=== PATIENT | male | born 1995 | race Caucasian/White ===

== ENCOUNTER 2017-11-30 18:16 | Emergency (ER) | payer OTHER ==
[~2017-11-30] VITALS: Ht 180.3 cm; Wt 127.0 kg
[~2017-11-30 18:16] MED LIST: TAMIFLU75 MG PO
--- NOTE | 2017-11-30 20:25 | ED GENERAL ADULT ---
History of Present Illness General Chief Complaint: General Adult Stated Complaint: FEVER OF 104.5, DEHYDRATED, SORE THROAT Source: patient Exam Limitations: no limitations Vital Signs & Intake/Output Vital Signs & Intake/Output Vital Signs Date Time Temp Pulse Resp B/P B/P Pulse O2 O2 Flow FiO2 Mean Ox Delivery Rate 11/30 2202 100.5 97 16 101/52 95 Room Air 11/30 1849 102.7 11/30 1828 102.7 116 15 114/70 95 Room Air Room Air Allergies Coded Allergies: No Known Allergies (11/30/17) Reconcile Medications Amoxicillin/Potassium Clav (Augmentin 875-125 Tablet) 875 MG-125 MG TABLET 1 TAB PO BID sinusitis Ibuprofen 800 MG TABLET 1 TAB PO TID PRN pain/fever Oseltamivir Phosphate (Tamiflu) 75 MG CAP 1 TAB PO BID INFLUENZA Triage Note: PT TO ED FOR C/C OF FEVERS THAT STARTED LAST NIGHT. SUBECTIVE FEVERS HIGH 104 THIS MORNING. 102 IN TRIAGE. MEDICATED WITH TYLENOL. PT ALSO REPORTS +HEAD CONGESTION AND SORE THROAT AND SICK CONTACTS. Triage Nurses Notes Reviewed? yes Onset: Gradual Duration: day(s): Timing: recent history Injury Environment: home Severity: moderate Modifying Factors: Improves With: rest. Associated Symptoms: headache HPI: 22 yo gentleman in prior good health presents with fever to 104, myalgia, headache, sore throat, sinus pressure, without nausea, vomiting, diarrhea, dyspnea, cough, chills. He notes his children had similar symptoms last week. Past History Travel History Traveled to [place] past 21 day No Medical History Any Pertinent Medical History? see below for history Neurological: NONE EENT: NONE Cardiovascular: NONE Respiratory: NONE Gastrointestinal: NONE Hepatic: NONE Renal: NONE Musculoskeletal: NONE Psychiatric: NONE Endocrine: NONE Blood Disorders: NONE Cancer(s): NONE Surgical History Surgical History: non-contributory Psychosocial History What is your primary language Czech Tobacco Use: Current Daily Use Daily Tobacco Use Amount/Type: => 5 Cigarettes daily ETOH Use: denies use Illicit Drug Use: denies illicit drug use Family History Hx Contributory? No Review of Systems Review of Systems Constitutional: Reports: no symptoms. EENTM: Reports: no symptoms. Respiratory: Reports: no symptoms. Cardiovascular: Reports: no symptoms. GI: Reports: no symptoms. Genitourinary: Reports: no symptoms. Musculoskeletal: Reports: no symptoms. Skin: Reports: no symptoms. Neurological/Psychological: Reports: no symptoms. Hematologic/Endocrine: Reports: no symptoms. Immunologic/Allergic: Reports: no symptoms. All Other Systems: Reviewed and Negative Physical Exam Physical Exam General Appearance: well developed/nourished, comfortable Head: atraumatic, normal appearance Eyes: Bilateral: normal appearance. Ears, Nose, Throat: mild oropharyngeal erythema, no exudates. Neck: normal inspection, supple, full range of motion Respiratory: normal breath sounds, chest non-tender, no respiratory distress, quiet respiration, lungs clear Cardiovascular: regular rate/rhythm Gastrointestinal: normal bowel sounds, soft, non-tender, no organomegaly Back: normal inspection, normal range of motion Extremities: normal inspection, normal capillary refill, normal range of motion, no edema Neurologic/Psych: no motor/sensory deficits, awake, alert, oriented x 3 Skin: intact, normal color, warm/dry Core Measures ACS in differential dx? No CVA/TIA Diagnosis: No Sepsis Present: No Sepsis Focused Exam Completed? No Progress Differential Diagnoses I considered the following diagnoses in my evaluation of the patient: viral syndrome vs pneumonia vs other. Plan of Care: Orders Procedure Date/time Status Add-on Test (ER Only) 11/30 2048 Active MONOSPOT TEST 11/30 1954 Complete RAPID VIRAL INFLUENZA A 11/30 1832 Complete THROAT CULTURE W/QUICK STREP 11/30 1832 Active COMPREHENSIVE METABOLIC PANEL 11/30 1832 Complete CBC WITHOUT DIFFERENTIAL 11/30 1832 Complete Laboratory Tests 11/30/171954: Anion Gap 14, Estimated GFR > 60, BUN/Creatinine Ratio 10.0, Glucose 90, Calcium 9.2, Total Bilirubin 1.4 H, AST 42, ALT 137 H, Alkaline Phosphatase 69, Total Protein 7.4, Albumin 4.5, Globulin 2.9, Albumin/Globulin Ratio 1.6, CBC w Diff NO MAN DIFF REQ, RBC 5.34, MCV 81.7, MCH 27.8, MCHC 34.0, RDW 12.9, MPV 7.8, Gran % 85.9 H, Lymphocytes % 7.2 L, Monocytes % 6.8, Eosinophils % 0.1, Basophils % 0, Absolute Granulocytes 10.1 H, Absolute Lymphocytes 0.8 L, Absolute Monocytes 0.8 H, Absolute Eosinophils 0, Absolute Basophils 0, Infectious [place] Titer NEGATIVE Microbiology 11/30 1833 NASOPHARYN: Influenza Virus A & B Rapid Smear - COMP Diagnostic Imaging: Viewed by Me: Radiology Read. Discussed w/RAD: Radiology Read. CXR Impression: PATIENT: YANIQUE GONSALEZ PRESENT AGE: 22 PATIENT ACCOUNT NO: [id number] : 95 LOCATION: [facility] ORDERING PHYSICIAN: Chris Barragan MD SERVICE DATE: 11/30/17 EXAM TYPE: RAD - XRY-CHEST XRAY, TWO VIEWS EXAMINATION: XR CHEST CLINICAL INFORMATION: Fever COMPARISON: None TECHNIQUE: 2 views of the chest were obtained. FINDINGS: The lungs are well expanded. There is no focal consolidation, edema, or effusion. No pneumothorax. The cardiomediastinal silhouette is within normal limits. No acute osseous abnormality. IMPRESSION: No acute pulmonary findings. DICTATED BY: Arron Marcos MD DATE/TIME DICTATED:11/30/172132 [employer] [facility]:[facility]OHNNIE DATE/TIME TRANSCRIBED:11/30/172132 CONFIDENTIAL, DO NOT COPY WITHOUT APPROPRIATE AUTHORIZATION. <Electronically signed in Other Vendor System> SIGNED BY: Arron Marcos MD 11/30/172137 Initial ED EKG: none Departure Departure Disposition: HOME OR SELF CARE Condition: Stable Clinical Impression Primary Impression: Fever Secondary Impressions: Sinusitis Referrals: Patient Has No Primary Care Dr (PCP/Family) Departure Forms: Customer Survey General Discharge Information Prescriptions: Current Visit Scripts Amoxicillin/Potassium Clav (Augmentin 875-125 Tablet) 1 TAB PO BID #14 TAB Ibuprofen 1 TAB PO TID PRN pain/fever #30 TAB Comments 11/30/17, 21:58... well appearing in the ED, feels better after antipyretics and iv fluids. likely viral vs bacterial sinusisit... rx for augmentin, ibuprofen. close follow up advised. Critical Care Note Critical Care Note Critical Care Time: non-applicable
[2017-11-30 20:44] LABS: ABSOLUTE BASOPHIL COUNT 0 /CUMM (0.0-0.2); ABSOLUTE EOSINOPHIL COUNT 0 /CUMM (0.0-0.7); ABSOLUTE GRANULOCYTE CT 10.1 /CUMM (1.4-6.5); ABSOLUTE LYMPH COUNT 0.8 /CUMM (1.2-3.4); ABSOLUTE MONOCYTE COUNT 0.8 /CUMM (0.10-0.60); BASOPHIL % 0 % (0.0-2.0); EOSINOPHIL % 0.1 % (0-5); GRANULOCYTE % 85.9 % (42.2-75.2); HEMATOCRIT 43.6 % (42-52); MEAN CORPUSCULAR HGB 27.8 PG (27.0-31.0); MEAN CORPUSCULAR VOLUME 81.7 FL (80.0-94.0); MEAN PLATELET VOLUME 7.8 FL (7.4-10.4); PLATELET COUNT 252 /CUMM (130-400); RBC DISTRIBUTION WIDTH 12.9 % (11.5-14.5); RED BLOOD CELL CT 5.34 /CUMM (4.70-6.10); WHITE BLOOD CELL COUNT 11.8 /CUMM (4.8-10.8)
--- NOTE | 2017-11-30 21:38 | RADIOLOGY REPORT ---
EXAMINATION: XR CHEST CLINICAL INFORMATION: Fever COMPARISON: None TECHNIQUE: 2 views of the chest were obtained. FINDINGS: The lungs are well expanded. There is no focal consolidation, edema, or effusion. No pneumothorax. The cardiomediastinal silhouette is within normal limits. No acute osseous abnormality. IMPRESSION: No acute pulmonary findings.
[2017-11-30] MEDS ORDERED: IBUPROFEN800 M1 PO (21:57)
[2017-11-30] MEDS ORDERED: AUGMENTIN 875-1 EACH PO (21:57)
[2017-11-30 22:03] VITALS: BP 101/52
== END 2017-11-30 22:05 ==
LOC: ERH 18:16 → ENTRNSPT 21:32 → EDTRNSPT 21:37 → EDTRNSPTSTS 21:37 → CMPTRNSPT 22:00 → ERH 22:05
PROVIDERS: Internal Medicine
DX: J32.9 Chronic sinusitis, unspecified (principal); F17.210 Nicotine dependence, cigarettes, uncomplicated
CPT/HCPCS: 71046; 87147; 87804; 87804-59; 96361; 96374; J1885